=== PATIENT | male | born 1970 | race Caucasian/White ===

== ENCOUNTER → 2022-10-15 08:47 | Outpatient (BNVA) | payer OTHER, SELFPAY | PROVIDERS: PCP Internal Medicine; Visit Provider Physician Assistant ==

== ENCOUNTER 2022-11-16 06:11 | Inpatient (IN) | payer OTHER, SELFPAY ==
[2022-11-04 11:58] VITALS: BMI 28.7
--- NOTE | 2022-11-15 09:12 | P.CONAN_ITS ---
Documented by User: Lore Kimbrough NP 11/15/22 09:13 HPI - Anesthesia Eval Consult details Narrative: 52yo M for Revise Ant Cerv Disc w/ Fusion,Removal anterior cervical cage,C5 Corpectomy,C4-6 plating, Chronic conditions stable at 08/2022 PCP visit [facility] Active Problems Active Problems: All Active Problems (Updated 11/04/22 @ 11:52 by Aura Nieto RN) Cervical myelopathy (Acute) Past Medical History Medical History (Updated 11/04/22 @ 11:52 by Aura Nieto RN) GERD (gastroesophageal reflux disease) HTN (hypertension) Hyperlipemia Irritable bowel syndrome (IBS) Sleep apnea Social anxiety disorder Surgical History Surgical History (Updated 11/04/22 @ 11:48 by Aura Nieto RN) H/O colonoscopy History of esophagogastroduodenoscopy (EGD) Hx of neck surgery Hx of tonsillectomy Social History Social History Are you a primary career coordinator to a significant other at home: No Do you presently have visiting nurse or other home services: No Patient Tobacco Use Status: Current everyday Tobacco user Tobacco use type: Cigarette Cigarette Packs Per Day: 0.5 Cigarettes Per Day: 10.0 Years Smoked: 30 Use of substances other than those prescribed or required for medical reasons: Yes Substance Use Frequency: Daily Have you been hit, kicked, punched, or otherwise hurt by someone within the past year? If so, by whom?: No Are you DNR?: No Advance Directives: Yes Advance Directives Information Provided: No Advance Directives on File: Yes Advance Directives Date on File: 11/16/22 Recently lost weight without trying: No Nutrition Risks: No Nutritional Risk Poor oral hygiene: Yes (one crown) Meds Allergies Allergy/AdvReac Type Severity Reaction Status Date / Time No Known Allergies Allergy Verified 11/04/22 11:39 Home Medications Medication Instructions Recorded Confirmed Last Taken Type atorvastatin 10 mg tablet 10 mg PO DAILY 11/04/22 11/04/22 Unknown History hydrochlorothiazide 25 mg tablet 25 mg PO QAM 11/04/22 11/04/22 Unknown History lisinopril 10 mg tablet 10 mg PO DAILY 11/04/22 11/04/22 Unknown History omeprazole 20 mg capsule,delayed 20 mg PO DAILY 11/04/22 11/04/22 11/16/22 05:00 History release Exam Exam Date and Time: November 15, 2022 0912 Height,Weight and Vital Signs: Height 6 ft Weight 96.162 kg Pertinent Lab Results Pertinent Lab Results: CBC and CMP 08/2022 from outside facility all WNL Narrative Narrative: EKG 08/2022 per PCP note NSR Assessment and Plan Assessment Anesthesia Assessment: Chart Reviewed Documented by User: Shyann Borrero MD 11/16/22 07:33 PMFSH Past Medical History Medical History (Updated 11/04/22 @ 11:52 by Aura Nieto RN) GERD (gastroesophageal reflux disease) HTN (hypertension) Hyperlipemia Irritable bowel syndrome (IBS) Sleep apnea Social anxiety disorder Family History Family history of problems with anesthesia: No Surgical History Surgical History (Updated 11/04/22 @ 11:48 by Aura Nieto RN) H/O colonoscopy History of esophagogastroduodenoscopy (EGD) Hx of neck surgery Hx of tonsillectomy History of Problems with Anesthesia: No Social History Social History Are you a primary career coordinator to a significant other at home: No Do you presently have visiting nurse or other home services: No Patient Tobacco Use Status: Current everyday Tobacco user Tobacco use type: Cigarette Cigarette Packs Per Day: 0.5 Cigarettes Per Day: 10.0 Years Smoked: 30 Use of substances other than those prescribed or required for medical reasons: Yes Substance Use Frequency: Daily Have you been hit, kicked, punched, or otherwise hurt by someone within the past year? If so, by whom?: No Are you DNR?: No Advance Directives: Yes Advance Directives Information Provided: No Advance Directives on File: Yes Advance Directives Date on File: 11/16/22 Recently lost weight without trying: No Nutrition Risks: No Nutritional Risk Poor oral hygiene: Yes (one crown) Meds Allergies Allergy/AdvReac Type Severity Reaction Status Date / Time No Known Allergies Allergy Verified 11/04/22 11:39 Home Medications Medication Instructions Recorded Confirmed Last Taken Type atorvastatin 10 mg tablet 10 mg PO DAILY 11/04/22 11/04/22 Unknown History hydrochlorothiazide 25 mg tablet 25 mg PO QAM 11/04/22 11/04/22 Unknown History lisinopril 10 mg tablet 10 mg PO DAILY 11/04/22 11/04/22 Unknown History omeprazole 20 mg capsule,delayed 20 mg PO DAILY 11/04/22 11/04/22 11/16/22 05:00 History release Exam Airway Mallampati Class: III TM Dist: >3cm Neck ROM: Full (small mouth) Heart: cta rrr Lungs: cta Assessment and Plan Final Anesthetic Review Family History of Problems with Anesthesia: No History of Problems with Anesthesia: No NPO: Yes ASA Class: III Final Preanesthetic Review: No Changes in Pt Med Stat, Meds/Allgs Chart Reviewed, Consent Obtained/Reviewed and Anes Risks/Benef Reviewed Patient Risk: Intermediate Procedure Risk: Intermediate Anesthetic Plan Anesthetic Plan: GA Disposition: Standard PACU
[2022-11-16] VITALS (17 sets, daily range): BP systolic 106–139; BP diastolic 48–82; PULSE 74–92; RESP 12–88; TEMP 35.9–37.1; O2SAT 94–99; BMI 29.6
--- NOTE | ~2022-11-16 | FL_ITS ---
EXAMINATION: XR FLUOROSCOPY WITH IMAGES CLINICAL INFORMATION: ACDF. COMPARISON: Previous cervical spine MRI most recent 10/2022. TECHNIQUE: Fluoroscopy Supervised By: Tacho Fuentes. Fluoroscopy Time: 0.2 minutes. Cumulative Dose: 4 mGy. DAP: 1.1 Gycm2. Images: 3. FINDINGS: Images demonstrate surgical hardware projecting anterior to the C4-C7 vertebral bodies and corpectomy cage. Final images demonstrate a C5 corpectomy and question partial C6 corpectomy and anterior fusion hardware with plates and screws at C4 and C7. FL/FL guidance in OR IMPRESSION: Fluoroscopic guidance for cervical spine surgery.
[2022-11-16] MEDS: Gabapentin 300 MG CAPSULE PO (06:26)
[2022-11-16] MEDS: methocarbamoL 750 MG TABLET PO (06:26)
--- NOTE | 2022-11-16 07:10 | PHA.MEDREC ---
Pharmacy Consult ? Medication Reconciliation Pharmacy has completed the medication reconciliation. Reviewed med rec done by nursing
--- NOTE | 2022-11-16 12:08 | PM.CCHP ---
History of Present Illness Date of Service: 11/16/22 Chief Complaint: status post elective C5 corpectomy 52-year-old gentleman with underlying history of MARKO, hypertension, GERD, hyperlipidemia now postop day 0 after an elective C5 corpectomy with Dr. Fuentes being monitored in the intensive care unit in the immediate postop period. Review of Systems Constitutional: Constitutional: Denies daytime sleepiness, Denies excessive sweating, Denies fatigue, Denies fever(s), Denies lethargy, Denies malaise, Denies night sweats, Denies snoring and Denies weight loss Eyes: Eyes: Denies blurry vision and Denies itchy eyes ENT: Denies nasal congestion, Denies post nasal drip, Denies sinus pain, Denies sinus pressure and Denies other ( Thrush) Cardiovascular: Cardiovascular: Denies chest pain, Denies pedal edema, Denies dyspnea, Denies orthopnea and Denies paroxysmal nocturnal dyspnea Respiratory: Respiratory: Denies cough, Denies hemoptysis, Denies excessive phlegm production, Denies dyspnea, Denies snoring and Denies wheezing Gastrointestinal: Gastrointestinal: Denies abdominal pain and Denies heartburn Musculoskeletal: Musculoskeletal: Denies myalgias, Denies arthralgias and Denies joint swelling Integumentary/Breasts: Skin/Breast: Denies rash Neurologic: Denies memory loss and Denies seizure-like activity Psychiatric: Psychiatric: Denies abnormal sleep pattern, Denies anxiety and Denies memory loss Endocrine: Endocrine: Denies excessive sweating, Denies fatigue and Denies heat intolerance Hematologic/Lymphatic: Hematologic/Lymphatic: Denies easy bruising Allergic/Immunologic: Allergic/Immunologic: Denies itchy eyes, Denies seasonal rhinorrhea and Denies wheezing PMFSH Past Medical History Medical History (Updated 11/16/22 @ 12:10 by Fortino Montero MD) GERD (gastroesophageal reflux disease) HTN (hypertension) Hyperlipemia Irritable bowel syndrome (IBS) Sleep apnea Social anxiety disorder Surgical History Surgical History (Updated 11/04/22 @ 11:48 by Aura Nieto RN) H/O colonoscopy History of esophagogastroduodenoscopy (EGD) Hx of neck surgery Hx of tonsillectomy Social History Social History Are you a primary care transition manager to a significant other at home: No Do you presently have visiting nurse or other home services: No Patient Tobacco Use Status: Current everyday Tobacco user Tobacco use type: Cigarette Cigarette Packs Per Day: 0.5 Cigarettes Per Day: 10.0 Years Smoked: 30 Use of substances other than those prescribed or required for medical reasons: Yes Substance Use Frequency: Daily Have you been hit, kicked, punched, or otherwise hurt by someone within the past year? If so, by whom?: No Are you DNR?: No Advance Directives: Yes Advance Directives Information Provided: No Advance Directives on File: Yes Advance Directives Date on File: 11/16/22 Recently lost weight without trying: No Nutrition Risks: No Nutritional Risk Poor oral hygiene: Yes (one crown) Meds Allergies Allergy/AdvReac Type Severity Reaction Status Date / Time No Known Allergies Allergy Verified 11/04/22 11:39 Active Medications: Current Medications Docusate Sodium (Docusate Sodium 100 Mg Capsule) 100 mg PO BID [facility] Fentanyl (Fentanyl Citrate/Pf 100 Mcg/2 Ml Vial) 25 mcg IVPUSH Q5M PRN; Protocol PRN Reason: Pain, Moderate(Pain Scale 4-6) Hydromorphone HCl (Hydromorphone Hcl 0.5 Mg/0.5 Ml Syringe) 0.25 mg IVPUSH Q5M PRN; Protocol PRN Reason: Pain, Severe (Pain Scale 7-10) Hydromorphone HCl (Hydromorphone Hcl 1 Mg/Ml Syringe) 1 mg IVPUSH Q3H PRN; Protocol PRN Reason: Pain, Severe (Pain Scale 7-10) Lactated Ringer's (Lr) 1,000 mls @ 100 mls/hr IVCONT .Q10H [facility] Sodium Chloride (Ns) 1,000 mls @ 75 mls/hr IVCONT .[id number] [facility] Cefazolin Sodium/Dextrose (Ancef) 2 gm in 50 mls @ 100 mls/hr IV Q6H [facility] Stop: 11/17/22 02:29 Acetaminophen (Ofirmev) 1,000 mg in 100 mls @ 400 mls/hr IV Q6H [facility] Ondansetron HCl (Ondansetron Hcl 4 Mg/2 Ml Vial) 4 mg IVPUSH ONCE PRN PRN Reason: Nausea and Vomiting Ondansetron HCl (Ondansetron Hcl 4 Mg/2 Ml Vial) 4 mg IVPUSH Q6H PRN PRN Reason: Nausea and Vomiting Oxycodone HCl (Oxycodone Hcl Immed Release 5 Mg Tablet) 5 mg PO ONCE PRN PRN Reason: Pain, Severe (Pain Scale 7-10) Oxycodone HCl (Oxycodone Hcl Immed Release 5 Mg Tablet) 5 mg PO Q4H PRN PRN Reason: Pain, Moderate(Pain Scale 4-6) Oxycodone HCl (Oxycodone Hcl Immed Release 5 Mg Tablet) 10 mg PO Q4H PRN PRN Reason: Pain, Severe (Pain Scale 7-10) Home Medications Medication Instructions Recorded Confirmed Last Taken Type atorvastatin 10 mg tablet 10 mg PO DAILY 11/04/22 11/04/22 Unknown History hydrochlorothiazide 25 mg tablet 25 mg PO QAM 11/04/22 11/04/22 Unknown History lisinopril 10 mg tablet 10 mg PO DAILY 11/04/22 11/04/22 Unknown History omeprazole 20 mg capsule,delayed 20 mg PO DAILY 11/04/22 11/04/22 11/16/22 05:00 History release Physical Exam Vital Signs: Vital Signs: Last Vital Signs Temp 98 F 11/16/22 11:50 Pulse 80 11/16/22 12:05 Resp 18 11/16/22 12:05 BP 124/71 11/16/22 12:05 Pulse Ox 96 11/16/22 12:05 O2 Del Method Nasal Cannula wit h Capnography 11/16/22 12:05 O2 Flow Rate 4 11/16/22 12:05 BMI result Body Mass Index 28.7 Const: General: no acute distress and alert Nutritional Appearance: not obese Orientation/consciousness: Other orientation findings ( oriented) HEENT: Head: Yes atraumatic Eyes: General: appearance normal, both eyes and all related structures Sclerae: sclerae normal EOM: EOMs intact bilaterally Neck: Neck: Yes supple Lymphatic: no lymphadenopathy noted Resp: Effort & Inspection: normal respiratory effort and no use of accessory muscles Auscultation: clear to auscultation bilaterally Cardio: Rate: regular rate Rhythm: regular rhythm Heart sounds: no gallops, no murmurs and no rubs GI: Palpation (GI): Soft to palpation and Other GI palpation findings present ( nontender) Skin: General skin exam: other ( warm) Rashes: no rashes Extrem: General: No clubbing, No cyanosis and No edema Assessment and Plan (1) Cervical myelopathy: Status: Acute (2) HTN (hypertension): Status: Acute (3) Sleep apnea: Status: Acute (4) GERD (gastroesophageal reflux disease): Status: Acute Plan Assessment: 52-year-old gentleman postop day 0 after an elective C5 corpectomy being monitored in the intensive care unit Plan: Neuro: Cervical myelopathy postop day 0 status post an elective C5 corpectomy. Neurosurgery service care appreciated. Cardiac: No acute issues. Pulmonary: No acute issues. Renal: No acute issues. Endo: No acute issues. GI: No acute issues. ID: No acute issues Heme/Onc: No acute issues. Psych: No acute issues. Miscellaneous: No acute issues. Prophylaxis: Per neurosurgery Diet: regular Time Spent With Patient Time: Total time managing care of this patient today ____ minutes.
--- NOTE | 2022-11-16 13:04 | P.OP_ITS ---
Operative Note Operative Note Date of Service: 11/16/22 Narrative: Preoperative diagnosis: Cervical myelopathy Procedure: C5 corpectomy with removal of previous C4-5 cage; intervertebral expandable cage; C4-C6 anterior instrumentation; Morselizedautograft Surgeon: Tacho Fuentes MD, PhD Line Mechanic: Mike Ortiz PA-C Description of procedure: This 52-year-old male had a previous C4-5 anterior diskectomy fusion done for cervical myelopathy and myelomalacia on the MRI Two years ago. He experienced improvement but plateaued with an ongoing spastic gait. Recently he noticed a regression in symptoms A repeat MRI shows residual compression behind the body of C5. he was offered a C5 corpectomy with removal of previous anterior instrumentation to decompress the spinal cord. The procedure complications were explained. He was consented. He was brought to the operating room endotracheal intubated. He was put in a prone position with slight extension of the neck. Prep and drape was done followed by tomorrow. The previous cervical incision was opened. Platysma was opened and dissection was carried out towards the anterior cervical spine. Fibrous tissues was removed to expose the C5 vertebral body as well as the previous C4-5 instrumentation. Two screws were removed as well as an anterior plate from C4- C5 and the underlying cage was exposed. Accordingly, a C5-C6 diskectomy was done towards the posterior longitudinal ligament. A Leksell rongeur was used to perform a partial corpectomy which was saved for autograft. A corpectomy drill was used to further drill down towards the posterior wall of the C5 corpus. The posterior longitudinal ligament was opened between C5-C6 and with a # 2 and 3 Kerrison the corpectomy was completed towards the C4-5 disc space with the previous placed cage. Significant compression was present at the left superior part of the C5 vertebral body. The previous placed cage was incorporated in bone. The high-speed drill was used to remove the cage and to expose the endplate of the C4 vertebral body. Now that the decompression was completed an expandable Joao cage filled with morselized autograft was inserted into the disc space under fluoroscopic guidance. A 30 mm anterior plate was locked down with 4 x 14 mm screws. Final x-rays in AP and lateral projection showed good position of the biomechanical device and anterior instrumentation. The retractors removed. Hemostasis was done. The physician assistant spa director closed the incision in 2 layers. Steri-Strips were used to approximate the surgeon. An tegaderm was used to cover the incision. All sponge and needle counts were correct. Patient was extubated and transported in stable condition to recovery room. Complications: None Blood loss: 4o ml Specimen: None Disposition: Admit to ICU for observation
[2022-11-16] MEDS: ceFAZolin Sodium/Dextrose,Iso 2 GM/50 ML PIGGYBACK IV ×2 (14:11→19:58)
[2022-11-16] MEDS: 0.9 % Sodium Chloride 1,000 ML 75 ML IVCONT (14:16)
[2022-11-16] MEDS: hydroCHLOROthiazide 25 MG TABLET PO (16:00)
--- NOTE | 2022-11-16 17:29 | PC.NURSE ---
Pt arrived to unit from PACU. Pt oriented to unit, call flowers and bed mechanics. Admission completed. Pt alert and oriented x 4. Afebrile. public information director Sinus rhythm with 1st degree heart block. IV cefazolin given and IVF started. Denies any pain, just c/o stiff neck. Seen by PT and OT, pt had dizziness and nausea when standing. Started diet tolerating well. Voiding in urinal. Right neck dsg, small amount of old drainage. Weaned O2 from 3 liters nasal cannula to room air. Pt has bilateral weakness of legs at baseline. Denies any headache, blurred vision, numbness or tingling. Call flowers at bedside, bed alarm on, safety maintained. See assessment for further documentation.
[2022-11-16] MEDS: Acetaminophen 1,000 MG/100 ML PIGGYBACK 400 MG IV (18:07)
[2022-11-16] MEDS: Docusate Sodium 100 MG CAPSULE PO (19:57)
[2022-11-17] VITALS (12 sets, daily range): BP systolic 90–142; BP diastolic 40–82; PULSE 65–87; RESP 11–16; TEMP 36.8–37.2; O2SAT 94–98; BMI 30.7
[2022-11-17] MEDS: Acetaminophen 1,000 MG/100 ML PIGGYBACK 400 MG IV ×2 (00:28→06:03)
[2022-11-17] MEDS: 0.9 % Sodium Chloride 1,000 ML 75 ML IVCONT (00:28)
[2022-11-17] MEDS: ceFAZolin Sodium/Dextrose,Iso 2 GM/50 ML PIGGYBACK IV (02:13)
[2022-11-17 05:07] LABS: MANUAL DIFF FLAG NO
[2022-11-17 05:09] LABS: Basophils Percent Auto 0.1 % (0-2); Eosinophils Percent Auto 0.1 % (0-4); Hematocrit 42.6 % (42.0-52.0); Hemoglobin 14.7 g/dl (14.0-18.0); Imm Gran Abs Auto 0.05 X10*3/uL (0.00-0.03); Imm Gran Pct Auto 0.4 % (0.0-0.4); Lymphocytes Absolute Auto 2.7 X10*3/uL (1.2-4.9); Lymphocytes Percent Auto 19.3 % (20-40); Mean Corpuscular HGB Conc 34.5 g/dl (31.0-36.0); Mean Corpuscular Hemoglobin 31.2 pg (27.0-33.0); Mean Corpuscular Volume 90.4 fL (80.0-98.0); Monocytes Absolute Auto 1.1 X10*3/uL (0.1-1.2); Monocytes Percent Auto 7.9 % (2-11); Neutrophils Absolute Auto 10.2 x10*3/uL (2.0-8.3); Neutrophils Percent Auto 72.2 % (45-73); Platelet Count 199 X10*3/uL (160-400); Red Blood Count 4.71 X10*6/uL (4.60-5.80); Red Cell Distribution Width 13.3 % (11.0-16.0); White Blood Count 14.1 X10*3/uL (4.8-10.8)
[2022-11-17 05:26] LABS: Albumin Level 3.8 g/dL (3.5-5.0); Anion Gap 12 (12-20); Blood Urea Nitrogen 12 mg/dL (9-16); Carbon Dioxide 27 mmol/L (22-29); Chloride 104 mmol/L (96-108); Creatinine Clr Calc Pharmacy 116.9; Estimated Glomerular Filt Rate > 60; Glucose Random 106 mg/dL (60-115); Phosphorus 3.2 mg/dL (2.7-4.5); Sodium 139 mmol/L (135-145)
[2022-11-17] MEDS: Omeprazole 20 MG CAPSULE.DR PO (06:03)
[2022-11-17] MEDS: hydroCHLOROthiazide 25 MG TABLET PO (08:14)
[2022-11-17] MEDS: Atorvastatin Calcium 10 MG TABLET PO (08:14)
[2022-11-17] MEDS: lisinopriL 10 MG TABLET PO (08:14)
--- NOTE | 2022-11-17 08:52 | PM.DS ---
DS: Providers Provider Date of Service: 11/17/22 Date of admission: 11/16/22 06:11 Date of discharge: 11/17/22 Primary care physician: Jake Bose DO, MD DS: Diagnosis Discharge Diagnosis (1) Cervical myelopathy: Status: Acute (2) HTN (hypertension): Status: Acute (3) Sleep apnea: Status: Acute (4) GERD (gastroesophageal reflux disease): Status: Acute DS: Summary Hospital Course Hospital Course: On 11/18/1999 23 he underwent a C5 corpectomy with removal of the previous placed C4-5 cage; insertion of an expandable cage and instrumentation C4-C6 to decompress the spinal cord for cervical myelopathy. He was admitted for an overnight stated the ICU for airway observation. This morning he reports that he is neurologically improved. There are bilateral leg pain has disappeared. His left arm pain is better. he walked with physical therapy without difficulties. The incision is clean and dry. No difficulty with breathing or swallowing. Status at Discharge Functional status at discharge: independent ambulation Overall status at discharge: patient is back to baseline Time Spent with Patient Time attestation: Total time managing care of this patient today __ _ minutes. Discharge coordination time: Less than 30 minutes Specific discharge activities: none Quality: Safe Use of Opioids Does Pt have an Active Cancer Diagnosis on the Problem List?: No Quality: Stroke Does the patient have a stroke diagnosis?: No Physical Exam Vital Signs: Vital Signs: Last Vital Signs Temp 98.3 F 11/17/22 08:00 Pulse 82 11/17/22 08:00 Resp 12 11/17/22 08:00 BP 142/82 H 11/17/22 08:00 Pulse Ox 96 11/17/22 08:00 O2 Del Method Room Air 11/17/22 08:00 O2 Flow Rate 2 11/16/22 16:00 BMI result Body Mass Index 30.7 DS: Data Data Completed and Pending Labs on day of discharge: Laboratory Results - last 24 hr 11/17/22 11/17/22 04:35 04:35 WBC 14.1 H RBC 4.71 Hgb 14.7 Hct 42.6 MCV 90.4 MCH 31.2 MCHC 34.5 RDW 13.3 Plt Count 199 MPV 10.0 Immature Gran % (Auto) 0.4 Neut % (Auto) 72.2 Lymph % (Auto) 19.3 L Rolette % (Auto) 7.9 Eos % (Auto) 0.1 Baso % (Auto) 0.1 Lymph # (Auto) 2.7 Rolette # (Auto) 1.1 Eos # (Auto) 0.0 Baso # (Auto) 0.0 Abs Immat Gran (auto) 0.05 H Absolute Neuts (auto) 10.2 H Absolute Nucleated RBC 0.000 Nucleated RBC % (auto) 0.0 Sodium 139 Potassium 4.0 Chloride 104 Carbon Dioxide 27 Anion Gap 12 BUN 12 Creatinine 0.91 Estim Creat Clear Calc 116.9 Estimated GFR > 60 Random Glucose 106 Calcium 9.0 Phosphorus 3.2 Magnesium 2.0 Albumin 3.8 Discharge Plan Discharge Anticipated Discharge Date/Time: 11/17/22 08:56 Patient Disposition: Home, Self-Care Discharge Diagnosis: cervical myelopathy. Status post C5 corpectomy Referrals: Jake Bose DO, MD [Primary Care Provider] - 1 Week Discharge Medications: New oxycodone 5 mg tablet 5 mg PO Q6H PRN (Reason: pain) Qty: 20 0RF Rx Instructions: Partial Fill upon patient request. Continued omeprazole 20 mg Capsule,Delayed Release(Dr/Ec) 20 mg PO DAILY atorvastatin 10 mg tablet 10 mg PO DAILY lisinopril 10 mg tablet 10 mg PO DAILY hydrochlorothiazide 25 mg tablet 25 mg PO QAM Discharge Orders: Discharge Order (Routine); Ordered 11/17/22 Ordered By: Tacho Fuentes Activity on Discharge: As tolerated Stand Alone Forms: Patient Portal Discharge page Care Plan Goals: comply with plan of care Health Concerns: non Plan of Treatment: outpatient follow-up in 3 weeks Assessment: patient doing well. Incision clean and dry. Neurologically improved
--- NOTE | 2022-11-17 09:46 | MHC.CM.PN ---
CM MET WITH PT AT BEDSIDE. LIVES WITH SPOUSE IN A [facility]. INDEPENDENT AT BASELINE, EMPLOYED F/T. + COVID VAX X2 NO HCP, DECLINES AT THIS TIME. PCP DR. BOATENG DP: PT HAS BEEN MEDICALLY CLEARED FOR DC HOME, NO SERVICES. SPOUSE WILL TRANSPORT
--- NOTE | 2022-11-17 14:34 | HO.POSTANES ---
Post Anesthesia Evaluation Post Anesthesia Evaluation Date of Service: 11/17/22 Vital Signs: Vital Signs Temp Pulse Resp BP Pulse Ox O2 Del Method 11/17/22 10:15 81 98 11/17/22 08:00 98.3 F 82 12 142/82 H 96 Room Air 11/17/22 07:33 97 Room Air 11/17/22 07:00 68 16 131/75 98 Room Air 11/17/22 06:00 87 15 138/72 94 Room Air 11/17/22 05:00 67 11 L 130/66 97 Room Air 11/17/22 04:00 69 13 135/69 96 Room Air 11/17/22 03:00 65 13 123/72 95 Room Air Anesthesia: General Endotracheal-GETA Mental Status: Awake Pain Control: Satisfactory Nausea/Vomiting: None Hydration: Adequate Anesthesia-Related Issues: No Anes. Related Issues
== END 2022-11-17 09:30 | disposition home or self-care (01) | DRG 30 ==
LOC: HO.SSSA 06:14 → HO.ICU 12:00
PROVIDERS: Admitting Provider Neurological Surgery; PCP Internal Medicine; Visit Provider Internal Medicine Pulmonary Disease
PROC: 0RT30ZZ Resection of Cervical Vertebral Disc, Open Approach (ICD-10-PCS; principal; 2022-11-16 07:30)
DX: G95.9 Disease of spinal cord, unspecified (principal); K21.9 Gastro-esophageal reflux disease without esophagitis; E78.5 Hyperlipidemia, unspecified; F17.210 Nicotine dependence, cigarettes, uncomplicated; G47.33 Obstructive sleep apnea (adult) (pediatric); I10 Essential (primary) hypertension; Z71.6 Tobacco abuse counseling; Z79.899 Other long term (current) drug therapy
CPT/HCPCS: 36415; 80048; 82040; 83735; 84100; 85025; 97116; 97161; 97166; 97530; 97535; C1713; J0131; J0690; J1100; J1170; J1885; J2370; J2405; J3010

== ENCOUNTER → 2022-12-07 11:16 | Outpatient (BNVA) | payer OTHER, SELFPAY | PROVIDERS: PCP Internal Medicine; Visit Provider Physician Assistant ==

== ENCOUNTER 2023-01-04 14:41 | Outpatient (REF) | payer OTHER, SELFPAY ==
--- NOTE | ~2023-01-04 | XR_ITS ---
EXAMINATION: XR CERVICAL SPINE CLINICAL INFORMATION: Status post C4-C7 surgery with C5 corpectomy, possible partial C6 corpectomy and anterior fusion with plate and screws at C4-C7 COMPARISON: MR cervical spine 10/23/2022. 11/16/2022 OR fluoroscopy images. TECHNIQUE: 4 views of the cervical spine inclusive of flexion and extension views. FINDINGS: Redemonstration of surgical hardware at C4-C6 vertebral bodies with corpectomy cage. Hardware appears intact. Alignment preserved on flexion and extension views. Degenerative changes with loss of disc space height and hypertrophic change at C6-C7. XR/XR cervical spine 4V IMPRESSION: Redemonstration of surgical hardware at C4-C6 vertebral bodies with corpectomy cage. Hardware appears intact.
== END 2023-01-04 14:42 | disposition home or self-care (01) ==
LOC: HO.HOSX 14:41
PROVIDERS: Visit Provider Physician Assistant
DX: G95.9 Disease of spinal cord, unspecified (principal)
CPT/HCPCS: 72050

== ENCOUNTER 2023-01-04 14:55 | Outpatient (AMB) | payer OTHER, SELFPAY ==
--- NOTE | 2023-01-04 16:09 | HO.SPINEOV ---
Intake Intake Visit Reasons: 1 month f/u with xray`s Intake Note: Mr. Mitchell is here today for his 1 month f/u w/x-rays. Membership Correspondent Required: No Allergies No Known Allergies Allergy (Verified 12/07/22 11:41) Assessment & Plan Assessment & Plan (1) Cervical myelopathy: Code(s): G95.9 - Disease of spinal cord, unspecified Plan Mr Mitchell is about 6 weeks out from his cervical corpectomy with anterior plating for persistent spinal cord compression after previous anterior cervical fusion. From the standpoint of his myelopathic symptoms he continues to get better every day. The lumbar radiculopathy that was also plaguing him from his degenerative disc in the lumbar spine also seems to have gone away on its own. He is happy with the results of surgery at this point and we hope that he will continue to make improvements. We discussed activity guidelines, restrictions and expectations. He is back to work and seems to be getting along just fine. I would like see him back in 2 months with a set of x-rays. Mike Fuentes MD, PhD [facility] Orders: Orders XR cervical spine 4V Today G95.9 - Disease of spinal cord, unspecified Coding Level of Care Code Global (61735) Diagnoses Cervical myelopathy G95.9
== END 2023-01-04 16:22 | disposition home or self-care (01) ==
PROVIDERS: PCP Internal Medicine; Visit Provider Physician Assistant
DX: G95.9 Disease of spinal cord, unspecified (principal)
CPT/HCPCS: 99024

== ENCOUNTER 2023-03-23 08:04 | Outpatient (AMB) | payer OTHER, SELFPAY ==
--- NOTE | 2023-03-23 09:28 | MHC.OFFVIS ---
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 Allergies No Known Allergies Allergy (Verified 12/07/22 11:41) [facility] Medical History (Updated 12/07/22 @ 12:02 by MALINDA Cramer) Sleep apnea Social anxiety disorder Irritable bowel syndrome (IBS) Hyperlipemia HTN (hypertension) GERD (gastroesophageal reflux disease) Surgical History (Updated 03/23/23 @ 09:28 by MALINDA Arreola) History of esophagogastroduodenoscopy (EGD) H/O colonoscopy Hx of neck surgery Hx of tonsillectomy Social History Household Members: Spouse and Children Household Members Other:: Isatu son Jason Housing: House Are you a primary healthcare economics consultant to a significant other at home: No Do you presently have visiting nurse or other home services: No Patient Tobacco Use Status: Current everyday Tobacco user Tobacco use type: Cigarette Cigarette Packs Per Day: 0.5 Cigarettes Per Day: 10.0 Years Smoked: 30 Substance Use Type: Marijuana Advance Directives Date on File: 11/16/22 Current occupational status: employed Assessment & Plan Assessment & Plan (1) Status post lumbar spine surgery for decompression of spinal cord: Code(s): Z98.890 - Other specified postprocedural states Plan Procedure: C5 Corpectomy with anterior plating from C4-6. Isidoro comes in today for his 2nd postoperative visit. He reports he is very satisfied with the surgery and feels much better than he did pre-operatively. The patient reports she is up walking around and completing the majority of his ADLs. He reports that the numbness/tingling in his fingers and toes is significantly improved and only comes on intermittently. He also states that he is able to ambulate well and no longer feels like he is unsteady on his feet. He did state that he sometimes feels as though he has tension in his neck, and he was encouraged that this will improve with healing/time. 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 He also inquired about future neck/spine impairments in ask questions regarding disability. We extensively discussed these issues. We reviewed his cervical spine x-rays, which are unremarkable and remain consistent with previous x-ray imaging. Full strength in UE / LE. Mobility is intact. Sensation grossly intact. Patient is able to ambulate well, rises from a seated position without difficulty. Incision site is closed, well healed, with no signs of drainage. We will follow-up with the patient in 6 weeks for his 2nd postoperative visit. At that time we will get x-rays to review with the patient. Negro Fuentes MD,PhD [facility] Orders: Orders XR cervical spine 4V Today G95.9 - Disease of spinal cord, unspecified Coding Level of Care Code Global (60946) Diagnoses Status post lumbar spine surgery for decompression of spinal cord Z98.890
== END 2023-03-23 09:48 | disposition home or self-care (01) ==
PROVIDERS: PCP Internal Medicine; Visit Provider Physician Assistant
DX: Z98.890 Other specified postprocedural states (principal)
CPT/HCPCS: 99024

== ENCOUNTER 2023-03-23 08:04 | Outpatient (REF) | payer OTHER, SELFPAY ==
--- NOTE | ~2023-03-23 | XR_ITS ---
EXAMINATION: XR CERVICAL SPINE CLINICAL INFORMATION: Disease and spinal cord COMPARISON: Radiograph from 12/05/2022 TECHNIQUE: 4 views of the cervical spine were obtained. FINDINGS: Status post anterior cervical fusion of C4-C6 with corpectomy cage. Spinal hardware grossly intact. Straightening of normal cervical curvature. No acute visible fracture or dislocation. Multilevel degenerative changes no overt dynamic instability on flexion-extension views. Vertebral body heights and disc spaces are maintained. Prevertebral soft tissues are unremarkable. Posterior elements are intact. Paraspinal soft tissues are unremarkable. Visualized portions of the upper chest are unremarkable. XR/XR cervical spine 4V IMPRESSION: 1. Status post anterior cervical fusion of C4-C6 with corpectomy cage. Spinal hardware grossly intact. 2. Straightening of normal cervical curvature. 3. No acute visible fracture or dislocation. 4. Multilevel degenerative changes without overt dynamic instability.
== END 2023-03-23 08:05 | disposition home or self-care (01) ==
LOC: HO.HOSX 08:04
PROVIDERS: PCP Internal Medicine; Visit Provider Physician Assistant
DX: Z48.89 Encounter for other specified surgical aftercare (principal)
CPT/HCPCS: 72050

== ENCOUNTER 2024-02-02 14:32 | Outpatient (REF) | payer OTHER, SELFPAY ==
--- NOTE | ~2024-02-02 | XR_ITS ---
EXAMINATION: XR LUMBAR SPINE CLINICAL INFORMATION: Radiculopathy, lumbar region. COMPARISON: MRI dated 08/20/2020. TECHNIQUE: AP and lateral views of the lumbosacral spine. FINDINGS: Mild degenerative disc disease at L4-L5 with slight loss of intervertebral disc height and endplate osteophytes. Additional mild degenerative disc disease in the lower lumbar spine at the thoracolumbar junction. No fracture or spondylolisthesis. Mild osteoarthritis in the SI joints. Atherosclerotic calcifications in the abdominal aorta and iliac arteries. XR/XR lumbar spine 4V min IMPRESSION: Mild degenerative disc disease in the lower lumbar spine. No acute osseous findings. Electronically signed by: Josh Melgar MD 02/27/2024 06:01 PM EDT
== END 2024-02-02 14:33 | disposition home or self-care (01) ==
LOC: HO.HOSX 14:32
PROVIDERS: PCP Internal Medicine; Visit Provider Physician Assistant
DX: M54.16 Radiculopathy, lumbar region (principal)
CPT/HCPCS: 72110

== ENCOUNTER 2024-02-02 14:32 | Outpatient (AMB) | payer OTHER, SELFPAY ==
--- NOTE | 2024-02-02 15:07 | HO.SPINEOV ---
Intake Visit Reasons: Lumbar pain Intake Note: Mr. Mitchell is here today c/o low back pain. 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 He is well known to us from a cervical corpectomy last year. He tells me that about 2 3 weeks ago he fell and landed awkwardly. At that time he felt as though he twisted something in his back. He is felt this similar feeling many times and thought that it would just go away on its own. Over the course of a few weeks, he was just dealing with it. He did not even need any medication as it was just a mild discomfort. He was on a 2 hour car ride about a week ago and when he went to get out of the car at the rest stop, he was unable to stand up. He had such intense pain that he was screaming in pain and discomfort. Ultimately he was able to stand up for few minutes and walk into the rest stop, but when he sat down again, he could not get up again. He tried to continue his trip but over the course of the next day or so he had to go home because the pain was just too intense. It started radiating down into his right posterolateral thigh. Initially the pain was only there when he would transition from sitting to standing, but unfortunately now it is present at almost all positions with the exception of lying down. Currently he is in tremendous amounts of pain. He ended up going to the [facility] ED, but was just treated with some narcotics and anti-inflammatories which did not really help much. Specifically he was given morphine and that only made him nauseous so he discontinued it. He had some oxycodone left over from the surgery last year in tried that and it did help a little. He comes in today because the pain has just gotten too intense for him to be able to tolerate it. He has an absolute agony, unable to stand or walk for any length of time. His only comfortable position is lying down. On my exam, he is walking with a cane. He looks very uncomfortable, antalgic gait, positive straight leg raise at 15 degrees. He has some mild weakness of his dorsiflexion. I would rate this as 4-5. This is a patient who has had previous MRIs and has had known issues with a disc degeneration at L4-5 with compression of the L5 nerve root seen on his imaging from a few years back. What I suspect is that he herniated a disc when he fell and for whatever reason the car ride aggravated to a degree that is now a full-blown radiculopathy. With the weakness of his foot in the amount of pain that he is in, I think we should get an urgent MRI. I ordered an x-ray as well as typically many insurance companies will require that before getting the MRI. I do not expect it to show me much. The MRI is really the most important study year. I called him in a prescription for a steroid Dosepak, gabapentin and oxycodone. I will call him as soon as the MRI is done. Total amount of time spent in this visit was 20 minutes in discussion of symptoms, previous lumbar MRI imaging results and subsequent plan of care Mike Fuentes MD,PhD [facility] Orders: Orders MR lumbar spine wo con Today M54.16 - Radiculopathy, lumbar region XR lumbar spine 4V min Today M54.16 - Radiculopathy, lumbar region Medications: New methylprednisolone take as directed on package 4 mg PO DAILY 21 ea 0RF Changed From oxycodone Partial Fill upon patient request. 5 mg PO Q6H PRN 30 tabs 0RF pain To oxycodone Partial Fill upon patient request. 5 mg PO Q4-6H PRN 30 tabs 0RF pain Refilled gabapentin 300 mg PO TID 90 caps 11RF Coding Level of Care Code Est Pt Level 3 (02562) Diagnoses Lumbar radiculopathy M54.16
== END 2024-02-02 15:52 | disposition home or self-care (01) ==
PROVIDERS: PCP Internal Medicine; Visit Provider Physician Assistant
DX: M54.16 Radiculopathy, lumbar region (principal)
CPT/HCPCS: 99213